=== PATIENT | female | born 1960 | race Caucasian/White ===

== ENCOUNTER 2016-11-15 21:52 | Emergency (ER) | payer OTHER ==
[~2016-11-15 21:52] MED LIST: ALBUTEROL17 GM INH; FLEXERIL PO; FLEXERIL10 M1 PO; HYDROCODON-ACE1 EAC5 PO; KLOR-CON PO; LEVAQUIN PO; METRONIDAZOLE PO; NAPROSYN500 MG PO; PERCOCET5/325 PO; PREDNISONE PO; PRILOSEC PO; TESSALON PERLE100 M1 PO; TRAMADOL HCL50 M1 PO; VOLTAREN75 MG PO; XANAX1 MG PO; ZANTAC150 M1 PO; ZITHROMAX PO
[2016-11-15 22:07] LABS: INFLUENZA A NEG (NEG); INFLUENZA B NEG (NEG)
[2016-11-15 22:10] LABS: ALBUMIN SERUM 4.5 g/dL (3.5-5.0); ALKALINE PHOSPHATASE 48 U/L (32-92); ALT (SGPT) 18 U/L (10-40); AST (SGOT) 23 U/L (10-42); BILIRUBIN,TOTAL 0.6 mg/dL (0.2-2.0); BLOOD UREA NITROGEN 12 mg/dL (9-23); BUN/CREATININE RATIO 13.33; CALCIUM SERUM 9.2 mg/dL (8.4-10.2); CARBON DIOXIDE 25 mmol/L (22-31); CHLORIDE 103 mmol/L (100-111); CREATININE SERUM 0.9 mg/dL (0.6-1.4); GLOM FILT RATE Estimated ABOVE60 mL/min (>60); GLUCOSE FASTING 124 mg/dL (70-110); PROTEIN TOTAL SERUM 8.7 g/dL (6.0-8.3); SODIUM 138 mmol/L (135-145)
[2016-11-15 22:35] LABS: URINE SOURCE CLEAN CATCH
[2016-11-15 22:37] LABS: URINE APPEARANCE CLEAR; URINE BILIRUBIN NEG (NEG); URINE BLOOD TRACE-INTACT (NEG); URINE COLOR YELLOW; URINE GLUCOSE NEG (NORM); URINE KETONE 1+ (NEG); URINE LEUKOCYTE ESTERASE NEG (NEG); URINE NITRATE NEG (NEG); URINE PH 5.5 (5-8); URINE PROTEIN TRACE (NEG); URINE SPECIFIC GRAVITY 1.025 (1.003-1.035); URINE UROBILINOGEN 0.2 MG/DL (NORM)
[2016-11-15 22:38] LABS: MICRO INDICATED? YES
[2016-11-15 22:39] LABS: CULTURE INDICATED? NO; URINE BACTERIA NEG (NEG); URINE MUCUS PRESENT; URINE SQUAMOUS EPITHELIAL CELL OCCAS /[HPF]; URINE WBC 0-2 /[HPF] (0-5)
== END 2016-11-15 23:08 | disposition home or self-care (01) ==
LOC: SED 21:52
DX: E87.6 Hypokalemia (principal); K21.9 Gastro-esophageal reflux disease without esophagitis; F41.9 Anxiety disorder, unspecified; F17.200 Nicotine dependence, unspecified, uncomplicated; Z90.49 Acquired absence of other specified parts of digestive tract; Z88.5 Allergy status to narcotic agent; Z79.899 Other long term (current) drug therapy
CPT/HCPCS: 36415; 80053; 81003; 87804; 96361; 96374; 99284; J2405